=== PATIENT | male | born 1950 | race Caucasian/White ===

== ENCOUNTER → 2020-04-04 | Outpatient (CLI) | payer OTHER, MEDICARE ==
--- NOTE | 2020-04-04 11:14 | XR ---
EXAMINATION TYPE: XR ribs LT w pa chest xray DATE OF EXAM: 04/04/2020 COMPARISON: 03/21/2014 HISTORY: Chest pain TECHNIQUE: Chest is examined in the frontal projection. Left ribs are examined in 2 views. FINDINGS: No pneumothorax is evident. Heart and mediastinum are normal. Pulmonary vasculature is norm al. There are old rib fractures of the seventh and eighth ribs. No acute osseous abnormality is evident IMPRESSION: 1. Old left rib fractures. No acute osseous abnormality is evident.
== END | disposition home or self-care (01) ==
LOC: RADXRMAIN 10:31
PROVIDERS: ATTEND Family Medicine
DX: R07.9 Chest pain, unspecified (principal); Z87.81 Personal history of (healed) traumatic fracture